=== PATIENT | female | born 1980 | race Caucasian/White ===

== ENCOUNTER → 2023-05-05 | Outpatient (CLI) | payer OTHER | END | disposition home or self-care (01) | LOC: RAD 13:36 | PROVIDERS: ATTEND Chiropractor Orthopedic | DX: M47.817 Spondylosis without myelopathy or radiculopathy, lumbosacral region (principal); M99.03 Segmental and somatic dysfunction of lumbar region ==

== ENCOUNTER 2023-07-13 16:01 | Emergency (ER) | payer OTHER ==
[~2023-07-13] VITALS: Ht 149.8 cm; Wt 59.0 kg
[2023-07-13] MEDS ORDERED: KEFLEX 500 MG E2 CAP PO (16:14)
[2023-07-13] MEDS ORDERED: OXYCODONE-ACET1 EAC3 PO (16:14)
[2023-07-13 16:46] LABS: BASO # 0.1 10*3/uL (0.0-0.1); BASO % 0.9 % (0.0-1.0); EOS # 0.2 10*3/uL (0.0-0.4); EOS % 2.6 % (1.0-4.0); HEMATOCRIT 38.9 % (37.0-47.0); LYMPH # 2.9 10*3/uL (1.3-4.4); LYMPH % 33.5 % (27.0-41.0); MEAN CELL VOLUME 94.6 fl (81.0-99.0); MEAN CORPUSCULAR HGB 30.7 pg (27.0-31.0); MEAN CORPUSCULAR HGB CONC 32.4 g/dl (33.0-37.0); MEAN PLATELET VOLUME 9.2 fl (9.6-12.3); MONO # 0.5 10*3/uL (0.1-1.0); MONO % 5.5 % (3.0-9.0); NEUT # 4.9 10*3/uL (2.3-7.9); NEUT % 57.3 % (47.0-73.0); PLATELET COUNT AUTOMATED 435 10*3/uL (130-400); RED BLOOD COUNT 4.11 10*6/uL (4.10-5.10); RED CELL DISTRI WIDTH 12.5 % (0-14.5); WHITE BLOOD COUNT 8.6 10*3/uL (4.8-10.8)
[2023-07-13 16:57] LABS: ACT PARTIAL THROMBO TIME 29.8 SECONDS (20.0-32.1)
[2023-07-13 17:10] LABS: BILIRUBIN Negative (Negative); BLOOD Negative (Negative); CLARITY Clear (Clear); COLOR Yellow (Yellow); GLUCOSE Negative (Negative); KETONE Negative (Negative); LEUKO ESTERASE Negative (Negative); NITRITE Negative (Negative); PH 7.5 (4.5-8.0); SPECIFIC GRAVITY <= 1.005 (1.001-1.030); UROBILINOGEN 0.2 E.U./dl (0.0-1.0)
[2023-07-13 17:11] LABS: ALKALINE PHOSPHATASE 45 U/L (46-116); BUN 15 mg/dl (9-23); CHLORIDE 104 mmol/L (98-107); POTASSIUM 3.4 mmol/L (3.4-5.1); SGPT/ALT 21 U/L (5-49); TOTAL PROTEIN 6.8 gm/dL (6.0-8.0)
[2023-07-13 17:14] LABS: FREE T4 1.09 ng/dl (0.89-1.76)
[2023-07-13 17:31] LABS: BACTERIA 2+
[2023-07-13] MEDS ORDERED: BUMETANIDE 1 MG/4 ML VIAL IM ONE (18:50)
== END 2023-07-13 18:51 | disposition home or self-care (01) ==
LOC: ED 16:01
PROVIDERS: Nurse Practitioner Family
DX: R60.0 Localized edema (principal); R10.2 Pelvic and perineal pain; Z98.890 Other specified postprocedural states; Z87.891 Personal history of nicotine dependence; Z79.899 Other long term (current) drug therapy

== ENCOUNTER → 2024-07-19 | Outpatient (CLI) | payer OTHER ==
[~2024-07-19] MED LIST: KEFLEX 500 MG E2 CAP PO; OXYCODONE-ACET1 EAC3 PO
== END ==
LOC: RAD 14:55
PROVIDERS: ATTEND Chiropractor Orthopedic
DX: M47.816 Spondylosis without myelopathy or radiculopathy, lumbar region (principal); M43.16 Spondylolisthesis, lumbar region